=== PATIENT | male | born 1960 | race Caucasian/White ===

== ENCOUNTER 2018-09-25 17:21 | Inpatient (IN) | payer MEDICARE ==
[~2018-09-25] VITALS: Ht 170.2 cm; Wt 87.9 kg
[~2018-09-25 17:21] MED LIST: ASPI-1012 PO; BUPR100T6 PO; DAPA10TA PO; DIPH50CA4 PO; FAMO-136 PO; FAMO20TA8 PO; INSU100V12 SQ; LISI-613 PO; LOVA20TA3 PO; METF-444 PO; METF500T7 PO; METO50TA18 PO; NEBI10TA PO; NITR0.4T50 SL; OLME1TAB7 PO; OMEG1CAP31 PO; RIVA20TA PO; SPIR25TA PO; SPIR25TA6 PO
[2018-09-25 18:07] LABS: BASOPHILS % (AUTO) 1.2 % (0.0-5.0); LYMPHOCYTES % (AUTO) 24.4 % (21.0-51.0); MEAN CORPUSCULAR HEMOGLOBIN 26.4 pg (27.0-33.0); MEAN CORPUSCULAR HGB CONC 30.8 g/dL (32.0-36.0); MEAN CORPUSCULAR VOLUME 85.7 fL (79-99); MONOCYTES % (AUTO) 6.6 % (3.0-13.0); NEUTROPHILS % (AUTO) 65.8 % (40.0-77.0); NUCLEATED RED BLOOD CELLS 0.1 % (0.0-0.19); PLATELET COUNT (AUTO) 361 K/uL (130-400); RED BLOOD CELL COUNT(AUTO) 5.37 MIL/uL (4.50-6.20); RED CELL DISTRIBUTION WIDTH 15.7 % (11.0-15.5); WHITE BLOOD COUNT (AUTO) 12.9 K/uL (4.8-10.8)
[2018-09-25 18:17] LABS: POTASSIUM 4.6 mmol/L (3.5-5.1)
[2018-09-25 18:18] LABS: INR 0.95 (0.85-1.15); PARTIAL THROMBOPLASTIN TIME 27.5 SEC (26.3-35.5)
[2018-09-25 18:22] LABS: ALBUMIN 2.2 g/dL (3.5-5.0); BILIRUBIN,TOTAL 0.2 mg/dL (0.2-1.0); TOTAL PROTEIN, SERUM 6.6 g/dL (6.0-8.3)
[2018-09-25 18:38] LABS: B-TYPE NATRIURETIC PEPTIDE 437 pg/mL (0-100)
[2018-09-25] MEDS ORDERED: FUROSEMIDE 10 MG/ML 4ML VIAL ONE (19:35)
[2018-09-25] MEDS ORDERED: DEXTROSE 50%-WATER 50 ML DISP.SYRIN IV PRN (20:15)
[2018-09-25] MEDS: FUROSEMIDE 10 MG/ML 4ML VIAL IV SCH (20:15)
[2018-09-25] MEDS ORDERED: GLUCAGON 1MG KIT 1 MG ML IM PRN (20:15)
[2018-09-25] MEDS: INSULIN HUMULIN R 100 UNIT/ML 3ML SQ SCH (21:00)
[2018-09-25 21:40] VITALS: BP 133/67
[2018-09-25] MEDS ORDERED: ATOR40TA69 PO (22:18)
[2018-09-25] MEDS ORDERED: METF-446 PO (22:18)
[2018-09-25] MEDS ORDERED: PROP80TA4 PO (22:18)
[2018-09-25] MEDS ORDERED: LOSA1TAB37 PO (22:18)
[2018-09-25] MEDS ORDERED: AEC81 PO (22:18)
[2018-09-25] MEDS ORDERED: APIX5TAB PO (22:18)
[2018-09-25] MEDS ORDERED: POTASSIUM CHLORIDE 20 MEQ ERTAB PO PRN (23:00)
[2018-09-25] MEDS ORDERED: ACETAMINOPHEN 325 MG TAB PO PRN (23:00)
[2018-09-25] MEDS ORDERED: ONDANSETRON HCL 4 MG/2 ML VIAL IV PRN (23:00)
[2018-09-25] MEDS ORDERED: LIDOCAINE HCL-MPF 1% 2ML VIAL IVP PRN (23:00)
[2018-09-25] MEDS ORDERED: POTASSIUM CHLORIDE 10% ELIXIR 20 MEQ/15 ML UDCUP PO PRN (23:00)
[2018-09-25] MEDS ORDERED: MAGNESIUM 2GM PREMIX 50ML 50 ML IV PRN (23:00)
[2018-09-25] MEDS ORDERED: POTASSIUM CHLORIDE 20MEQ/100ML 100 ML IV PRN (23:00)
[2018-09-26] MEDS: IPRATROPIUM/ALBUTEROL SULFATE 3 ML SOLUTION IH SCH ×6 (02:11→21:21)
[2018-09-26 04:00] VITALS: BP 153/87
[2018-09-26 06:21] LABS: BASOPHILS % (AUTO) 1.2 % (0.0-5.0); HEMATOCRIT 44.2 % (42-54); LYMPHOCYTES % (AUTO) 24.6 % (21.0-51.0); MEAN CORPUSCULAR HEMOGLOBIN 27.2 pg (27.0-33.0); MONOCYTES % (AUTO) 8.1 % (3.0-13.0); NEUTROPHILS % (AUTO) 64.1 % (40.0-77.0); PLATELET COUNT (AUTO) 378 K/uL (130-400); RED CELL DISTRIBUTION WIDTH 15.4 % (11.0-15.5); WHITE BLOOD COUNT (AUTO) 10.1 K/uL (4.8-10.8)
[2018-09-26 06:27] LABS: HEMOGLOBIN A1C 8.5 % (4.0-6.0)
[2018-09-26 06:41] LABS: B-TYPE NATRIURETIC PEPTIDE 407 pg/mL (0-100)
[2018-09-26 07:10] LABS: ALBUMIN 2.1 g/dL (3.5-5.0); BILIRUBIN,TOTAL 0.2 mg/dL (0.2-1.0); POTASSIUM 4.9 mmol/L (3.5-5.1); TOTAL PROTEIN, SERUM 6.6 g/dL (6.0-8.3)
[2018-09-26 07:30] VITALS: BP 129/65
[2018-09-26] MEDS: INSULIN HUMULIN R 100 UNIT/ML 3ML SQ SCH ×4 (07:30→21:22)
[2018-09-26] MEDS: PANTOPRAZOLE SODIUM 40 MG TABLET.DR PO SCH (08:45)
[2018-09-26] MEDS: FUROSEMIDE 10 MG/ML 4ML VIAL IV SCH ×2 (08:45→21:17)
[2018-09-26] MEDS ORDERED: ENOXAPARIN SODIUM 30 MG/0.3 ML SQ SCH (09:00)
[2018-09-26] MEDS ORDERED: NITROGLYCERIN 0.4 MG SL TAB SL PRN (09:30)
[2018-09-26 11:00] VITALS: BP 128/63
[2018-09-26] MEDS: FISH OIL 1000 MG/CAP PO SCH ×2 (11:51→21:16)
[2018-09-26] MEDS: NICOTINE 21 MG/ 24 HR PATCH TD SCH (11:52)
[2018-09-26] MEDS: PROPRANOLOL HCL 20 MG TAB PO SCH ×2 (11:52→21:16)
[2018-09-26] MEDS: LOSARTAN/HYDROCHLOROTHIAZIDE 50-12.5MG TABLET PO SCH (12:16)
[2018-09-26 16:00] VITALS: BP 131/60
[2018-09-26] MEDS ORDERED: INSLAN SQ (17:24)
[2018-09-26 20:00] VITALS: BP 127/63
[2018-09-26] MEDS: ATORVASTATIN CALCIUM 40 MG TABLET PO SCH (21:16)
[2018-09-26] MEDS: SPIRONOLACTONE 25 MG TAB PO SCH (21:16)
[2018-09-26] MEDS: DIPHENHYDRAMINE HCL 50 MG CAPSULE PO SCH (21:16)
[2018-09-26] MEDS: APIXABAN 5 MG TABLET PO SCH (21:16)
[2018-09-27] VITALS (7 sets, daily range): BP systolic 114–158; BP diastolic 58–96
[2018-09-27] MEDS ORDERED: HYDROCODONE/ACETAMINOPHEN 5/325 MG TAB PO PRN (00:15)
[2018-09-27] MEDS: IPRATROPIUM/ALBUTEROL SULFATE 3 ML SOLUTION IH SCH ×6 (01:12→21:10)
[2018-09-27 04:33] LABS: BASOPHILS % (AUTO) 0.6 % (0.0-5.0); EOSINOPHILS % (AUTO) 1.8 % (0.0-8.0); HEMATOCRIT 41.3 % (42-54); LYMPHOCYTES % (AUTO) 20.7 % (21.0-51.0); MEAN CORPUSCULAR HEMOGLOBIN 26.5 pg (27.0-33.0); MEAN CORPUSCULAR HGB CONC 31.2 g/dL (32.0-36.0); MONOCYTES % (AUTO) 7.7 % (3.0-13.0); NEUTROPHILS % (AUTO) 69.2 % (40.0-77.0); PLATELET COUNT (AUTO) 317 K/uL (130-400); RED BLOOD CELL COUNT(AUTO) 4.86 MIL/uL (4.50-6.20); RED CELL DISTRIBUTION WIDTH 15.6 % (11.0-15.5); WHITE BLOOD COUNT (AUTO) 10.9 K/uL (4.8-10.8)
[2018-09-27 04:47] LABS: CREATININE 0.9 mg/dL (0.5-1.5); POTASSIUM 4.3 mmol/L (3.5-5.1)
[2018-09-27] MEDS: INSULIN HUMULIN R 100 UNIT/ML 3ML SQ SCH ×4 (06:31→22:15)
[2018-09-27] MEDS: NICOTINE 21 MG/ 24 HR PATCH TD SCH (10:36)
[2018-09-27] MEDS: ASPIRIN 81 MG EC TAB PO SCH (10:38)
[2018-09-27] MEDS: SPIRONOLACTONE 25 MG TAB PO SCH ×2 (10:38→22:13)
[2018-09-27] MEDS: PANTOPRAZOLE SODIUM 40 MG TABLET.DR PO SCH (10:38)
[2018-09-27] MEDS: APIXABAN 5 MG TABLET PO SCH ×2 (10:38→22:12)
[2018-09-27] MEDS: FISH OIL 1000 MG/CAP PO SCH ×2 (10:38→22:15)
[2018-09-27] MEDS: LOSARTAN/HYDROCHLOROTHIAZIDE 50-12.5MG TABLET PO SCH (10:38)
[2018-09-27] MEDS: BENZONATATE 100 MG CAPSULE PO PRN (10:38)
[2018-09-27] MEDS: PROPRANOLOL HCL 20 MG TAB PO SCH ×2 (10:38→22:13)
[2018-09-27] MEDS: HYDROCODONE/ACETAMINOPHEN 5/325 MG TAB PO PRN (10:39)
[2018-09-27] MEDS: FUROSEMIDE 10 MG/ML 4ML VIAL IV SCH ×2 (10:43→22:14)
[2018-09-27] MEDS: DIPHENHYDRAMINE HCL 50 MG CAPSULE PO SCH (22:12)
[2018-09-27] MEDS: ATORVASTATIN CALCIUM 40 MG TABLET PO SCH (22:12)
[2018-09-28] MEDS: IPRATROPIUM/ALBUTEROL SULFATE 3 ML SOLUTION IH SCH ×6 (01:08→22:48)
[2018-09-28 03:15] VITALS: BP 125/60
[2018-09-28 04:32] LABS: BASOPHILS % (AUTO) 0.7 % (0.0-5.0); EOSINOPHILS % (AUTO) 2.3 % (0.0-8.0); LYMPHOCYTES % (AUTO) 26.2 % (21.0-51.0); MEAN CORPUSCULAR HEMOGLOBIN 26.5 pg (27.0-33.0); MEAN CORPUSCULAR HGB CONC 31.1 g/dL (32.0-36.0); MEAN CORPUSCULAR VOLUME 85.2 fL (79-99); MONOCYTES % (AUTO) 8.7 % (3.0-13.0); NEUTROPHILS % (AUTO) 62.1 % (40.0-77.0); PLATELET COUNT (AUTO) 309 K/uL (130-400); RED BLOOD CELL COUNT(AUTO) 5.05 MIL/uL (4.50-6.20); RED CELL DISTRIBUTION WIDTH 15.5 % (11.0-15.5); WHITE BLOOD COUNT (AUTO) 10.2 K/uL (4.8-10.8)
[2018-09-28 04:41] LABS: POTASSIUM 4.3 mmol/L (3.5-5.1)
[2018-09-28] MEDS: INSULIN HUMULIN R 100 UNIT/ML 3ML SQ SCH ×4 (06:26→21:50)
[2018-09-28 07:42] VITALS: BP 128/76
[2018-09-28] MEDS: APIXABAN 5 MG TABLET PO SCH ×2 (09:17→21:42)
[2018-09-28] MEDS: LOSARTAN/HYDROCHLOROTHIAZIDE 50-12.5MG TABLET PO SCH (09:17)
[2018-09-28] MEDS: ASPIRIN 81 MG EC TAB PO SCH (09:17)
[2018-09-28] MEDS: FISH OIL 1000 MG/CAP PO SCH ×2 (09:17→21:42)
[2018-09-28] MEDS: PROPRANOLOL HCL 20 MG TAB PO SCH ×2 (09:17→21:42)
[2018-09-28] MEDS: PANTOPRAZOLE SODIUM 40 MG TABLET.DR PO SCH (09:17)
[2018-09-28] MEDS: SPIRONOLACTONE 25 MG TAB PO SCH ×2 (09:18→21:42)
[2018-09-28] MEDS: HYDROCODONE/ACETAMINOPHEN 5/325 MG TAB PO PRN (09:18)
[2018-09-28] MEDS: BENZONATATE 100 MG CAPSULE PO PRN ×2 (09:18→21:42)
[2018-09-28] MEDS: FUROSEMIDE 10 MG/ML 4ML VIAL IV SCH ×2 (09:19→21:43)
[2018-09-28] MEDS: NICOTINE 21 MG/ 24 HR PATCH TD SCH (09:19)
[2018-09-28 11:40] VITALS: BP 122/70
[2018-09-28 16:00] VITALS: BP 132/74
[2018-09-28 20:24] VITALS: BP 140/85
[2018-09-28] MEDS: ATORVASTATIN CALCIUM 40 MG TABLET PO SCH (21:42)
[2018-09-28] MEDS: DIPHENHYDRAMINE HCL 50 MG CAPSULE PO SCH (21:42)
[2018-09-29 00:20] VITALS: BP 150/64
[2018-09-29] MEDS: IPRATROPIUM/ALBUTEROL SULFATE 3 ML SOLUTION IH SCH ×6 (01:50→21:44)
[2018-09-29 04:20] VITALS: BP 122/64
[2018-09-29] MEDS: INSULIN HUMULIN R 100 UNIT/ML 3ML SQ SCH ×4 (06:02→20:29)
[2018-09-29 08:00] VITALS: BP 142/87
[2018-09-29 08:13] LABS: BASOPHILS % (AUTO) 0.9 % (0.0-5.0); EOSINOPHILS % (AUTO) 1.8 % (0.0-8.0); HEMATOCRIT 43.4 % (42-54); LYMPHOCYTES % (AUTO) 20.3 % (21.0-51.0); MEAN CORPUSCULAR HEMOGLOBIN 26.9 pg (27.0-33.0); MEAN CORPUSCULAR HGB CONC 31.9 g/dL (32.0-36.0); MEAN CORPUSCULAR VOLUME 84.3 fL (79-99); MONOCYTES % (AUTO) 6.9 % (3.0-13.0); NEUTROPHILS % (AUTO) 70.1 % (40.0-77.0); PLATELET COUNT (AUTO) 319 K/uL (130-400); RED BLOOD CELL COUNT(AUTO) 5.15 MIL/uL (4.50-6.20); RED CELL DISTRIBUTION WIDTH 15.7 % (11.0-15.5); WHITE BLOOD COUNT (AUTO) 11.3 K/uL (4.8-10.8)
[2018-09-29 08:22] LABS: POTASSIUM 4.3 mmol/L (3.5-5.1)
[2018-09-29] MEDS: FUROSEMIDE 10 MG/ML 4ML VIAL IV SCH ×2 (09:22→19:53)
[2018-09-29] MEDS: FISH OIL 1000 MG/CAP PO SCH ×2 (09:43→19:43)
[2018-09-29] MEDS: LOSARTAN/HYDROCHLOROTHIAZIDE 50-12.5MG TABLET PO SCH (09:43)
[2018-09-29] MEDS: PANTOPRAZOLE SODIUM 40 MG TABLET.DR PO SCH (09:43)
[2018-09-29] MEDS: PROPRANOLOL HCL 20 MG TAB PO SCH ×2 (09:43→19:43)
[2018-09-29] MEDS: ASPIRIN 81 MG EC TAB PO SCH (09:43)
[2018-09-29] MEDS: NICOTINE 21 MG/ 24 HR PATCH TD SCH (09:44)
[2018-09-29] MEDS: APIXABAN 5 MG TABLET PO SCH ×2 (09:44→19:43)
[2018-09-29] MEDS: SPIRONOLACTONE 25 MG TAB PO SCH ×2 (09:44→19:43)
[2018-09-29 11:00] VITALS: BP 125/44
[2018-09-29 16:00] VITALS: BP 141/75
[2018-09-29 19:42] VITALS: BP 126/68
[2018-09-29] MEDS: DIPHENHYDRAMINE HCL 50 MG CAPSULE PO SCH (19:43)
[2018-09-29] MEDS: HYDROCORTISONE 1% 28.35 GM CREAM TP SCH (19:43)
[2018-09-29] MEDS: ATORVASTATIN CALCIUM 40 MG TABLET PO SCH (19:43)
[2018-09-30 00:16] VITALS: BP 124/50
[2018-09-30] MEDS: IPRATROPIUM/ALBUTEROL SULFATE 3 ML SOLUTION IH SCH ×4 (02:49→14:00)
[2018-09-30 04:16] VITALS: BP 146/51
[2018-09-30 04:57] LABS: BASOPHILS % (AUTO) 0.9 % (0.0-5.0); HEMATOCRIT 44.6 % (42-54); LYMPHOCYTES % (AUTO) 23.1 % (21.0-51.0); MEAN CORPUSCULAR HEMOGLOBIN 27.1 pg (27.0-33.0); MEAN CORPUSCULAR VOLUME 84.7 fL (79-99); PLATELET COUNT (AUTO) 347 K/uL (130-400); RED BLOOD CELL COUNT(AUTO) 5.27 MIL/uL (4.50-6.20); RED CELL DISTRIBUTION WIDTH 15.3 % (11.0-15.5); WHITE BLOOD COUNT (AUTO) 9.7 K/uL (4.8-10.8)
[2018-09-30 05:10] LABS: POTASSIUM 4.2 mmol/L (3.5-5.1)
[2018-09-30] MEDS: INSULIN HUMULIN R 100 UNIT/ML 3ML SQ SCH ×2 (05:56→12:37)
[2018-09-30 07:55] VITALS: BP 142/77
[2018-09-30] MEDS: FISH OIL 1000 MG/CAP PO SCH (09:48)
[2018-09-30] MEDS: FUROSEMIDE 10 MG/ML 4ML VIAL IV SCH (09:48)
[2018-09-30] MEDS: APIXABAN 5 MG TABLET PO SCH (09:49)
[2018-09-30] MEDS: PANTOPRAZOLE SODIUM 40 MG TABLET.DR PO SCH (09:49)
[2018-09-30] MEDS: PROPRANOLOL HCL 20 MG TAB PO SCH (09:49)
[2018-09-30] MEDS: LOSARTAN/HYDROCHLOROTHIAZIDE 50-12.5MG TABLET PO SCH (09:49)
[2018-09-30] MEDS: ASPIRIN 81 MG EC TAB PO SCH (09:49)
[2018-09-30] MEDS: SPIRONOLACTONE 25 MG TAB PO SCH (09:49)
[2018-09-30] MEDS: NICOTINE 21 MG/ 24 HR PATCH TD SCH (09:50)
[2018-09-30] MEDS: HYDROCORTISONE 1% 28.35 GM CREAM TP SCH (09:56)
[2018-09-30 11:00] VITALS: BP 140/68
[2018-09-30] MEDS ORDERED: FURO20TA6 PO (15:41)
== END 2018-09-30 16:30 | disposition home or self-care (01) | DRG 293 ==
LOC: EDH 17:21 → EDHIP 20:06 → 4CH 21:17 → 4BH 09-28 17:33
PROVIDERS: ADMIT Hospitalist; ATTEND Hospitalist
DX: I11.0 Hypertensive heart disease with heart failure (principal); I50.43 Acute on chronic combined systolic (congestive) and diastolic (congestive) heart failure; I42.9 Cardiomyopathy, unspecified; F17.210 Nicotine dependence, cigarettes, uncomplicated; E11.51 Type 2 diabetes mellitus with diabetic peripheral angiopathy without gangrene; E83.42 Hypomagnesemia; E78.5 Hyperlipidemia, unspecified; I25.10 Atherosclerotic heart disease of native coronary artery without angina pectoris; I48.0 Paroxysmal atrial fibrillation; Z95.0 Presence of cardiac pacemaker; Z91.19 Patient's noncompliance with other medical treatment and regimen; Z91.14 Patient's other noncompliance with medication regimen; Z89.611 Acquired absence of right leg above knee; Z86.718 Personal history of other venous thrombosis and embolism; Z83.3 Family history of diabetes mellitus; Z82.5 Family history of asthma and other chronic lower respiratory diseases; Z82.49 Family history of ischemic heart disease and other diseases of the circulatory system; Z82.0 Family history of epilepsy and other diseases of the nervous system
CPT/HCPCS: 36415; 71045; 80048; 80053; 82948; 83036; 83735; 83880; 84484; 85025; 85610; 85730; 93005; 93306; 93971; 94640; 94664; J1650; J1815; J1940; J3475; Q0163